=== PATIENT | male | born 1960 | race Two or more races ===

== ENCOUNTER 2021-02-28 13:38 | Emergency (ER) | payer OTHER ==
[~2021-02-28] VITALS: Ht 170.2 cm; Wt 72.6 kg
[2021-02-28] MEDS ORDERED: KETOROLAC TROMETHAMINE INJ 60 MG/2 ML VIAL IM ONE (14:30)
[2021-02-28] MEDS: KETOROLAC TROMETHAMINE INJ 60 MG/2 ML VIAL IM ONE (14:33)
[2021-02-28] MEDS ORDERED: METH-647 PO (15:24)
[2021-02-28] MEDS ORDERED: IBUP-1957 PO (15:24)
--- NOTE | 2021-02-28 16:06 | NUR ---
Patient discharged to home in stable condition. Written and verbal after care instructions given. Patient verbalizes understanding of instruction.
[2021-02-28 16:07] VITALS: BP 118/75
== END 2021-02-28 16:08 | disposition home or self-care (01) ==
LOC: ER 13:42
DX: M54.42 Lumbago with sciatica, left side (principal); R31.9 Hematuria, unspecified
CPT/HCPCS: 72131; 96372; 99284; J1885